=== PATIENT | female | born 1960 | race Hispanic/Latino ===

== ENCOUNTER 2020-07-27 08:02 | Emergency (ER) | payer MEDICAID ==
[~2020-07-27] VITALS: Ht 167.6 cm; Wt 84.7 kg
[2020-07-27] MEDS ORDERED: ASPI81TA86 PO (08:20)
[2020-07-27] MEDS ORDERED: LISI10TA4 PO (08:27)
[2020-07-27] MEDS ORDERED: ATOR40TA75 PO (08:27)
[2020-07-27] MEDS ORDERED: METF-838 PO (08:27)
[2020-07-27] MEDS ORDERED: NS 1,000 ML IV ONE (08:30)
[2020-07-27] MEDS ORDERED: ONDANSETRON 4MG/2ML VIAL IV ONE (08:30)
[2020-07-27 09:00] LABS: BASO # 0.1 10^3/uL (0.0-0.2); BASO % 0.8 % (0.0-1.0); EOS # 0.1 10^3/uL (0.0-0.5); EOS % 1.6 % (0.0-3.0); HEMATOCRIT 40.2 % (36.0-47.0); HEMOGLOBIN 13.2 g/dl (12.0-15.5); LYMPH # 2.5 10^3/uL (1.5-5.0); LYMPH % 39.3 % (24.0-44.0); MEAN CORPUSCULAR HEMOGLOBIN 29.2 pg (27.0-33.0); MEAN CORPUSCULAR HGB CONC 32.8 g/dl (32.0-36.5); MEAN CORPUSCULAR VOLUME 88.9 fl (80.0-96.0); MONO # 0.7 10^3/uL (0.0-0.8); MONO % 10.5 % (0.0-5.0); NEUTROPHILS # 3.1 10^3/uL (1.5-8.5); NEUTROPHILS % 47.6 % (36.0-66.0); PLATELET COUNT, AUTOMATED 173 10^3/uL (150-450); RED BLOOD COUNT 4.52 10^6/uL (4.00-5.40); WHITE BLOOD COUNT 6.4 10^3/uL (4.0-10.0)
[2020-07-27 09:21] LABS: ALBUMIN 3.8 GM/DL (3.2-5.2); ALT/SGPT 37 U/L (12-78); BILIRUBIN,DIRECT 0.3 MG/DL (0.0-0.2); BLOOD UREA NITROGEN 27 MG/DL (7-18); CALCIUM LEVEL 9.8 MG/DL (8.8-10.2); CARBON DIOXIDE LEVEL 24 MEQ/L (21-32); CHLORIDE LEVEL 103 MEQ/L (98-107); CK-MB VALUE MASS < 1.0 NG/ML (<3.6); CPK CREATINE PHOSPHOKINASE 149 U/L (26-192); GLOMERULAR FILTRATION RATE 48.8 (>45); GLUCOSE, FASTING 91 MG/DL (70-100); LIPASE 222 U/L (73-393); MB/CK RELATIVE INDEX 0.67 (< OR =4); POTASSIUM SERUM 4.1 MEQ/L (3.5-5.1); SODIUM LEVEL 138 MEQ/L (136-145); TROPONIN I < 0.02 NG/ML (< 0.10)
[2020-07-27] MEDS ORDERED: ISOVUE-370 76% 100ML VIAL As Ordered ONE (09:25)
[2020-07-27] MEDS ORDERED: CEFDINIR 300 MG CAP (OMNICEF) PO ONE (15:30)
[2020-07-27] MEDS ORDERED: ONDA4TAB6 PO (15:33)
[2020-07-27] MEDS ORDERED: MECL1TAB31 PO (15:33)
[2020-07-27 16:00] VITALS: BP 122/75
--- NOTE | 2020-07-31 15:50 | ECGEPIP ---
[facility] - ED Test Date: 2020-07-27 Pat Name: AGAPITO ENGLISH Department: Room: - Gender: Female Secretary Book Keeper: JT : 1960 Requested By: WOODY Siddiqi Order Number: [id number] Reading MD: Ainsley Arteaga Measurements Intervals [place] Rate: 77 P: 31 [place]: 142 QRS: -9 QRSD: 102 T: -30 QT: 364 QTc: 412 Interpretive Statements SINUS RHYTHM NONSPECIFIC T-WAVE ABNORMALITY BORDERLINE ECG SEE SCANNED DOWNTIME REPORT
--- NOTE | 2020-08-19 07:31 | REP ---
CT BRAIN WITHOUT CONTRAST HISTORY: Vomiting. FINDINGS: CT brain performed without the use of intravenous contrast material. Coronal reconstruction images were performed. Ventricles are normal in size and position. There is no midline shift or mass effect. Castañeda-white differentiation is well maintained. There is no acute intracranial hemorrhage or extraaxial fluid collection. Bone window examination is unremarkable. Visualized paranasal sinuses and mastoid air cells are clear. IMPRESSION: Essentially negative CT brain without contrast as discussed above. Preliminary report provided by virtual radiology at the time of exam. [facility]
--- NOTE | 2020-08-19 07:32 | REP ---
CT ABDOMEN AND PELVIS WITH IV CONTRAST PERFORMED 07/27/2020. HISTORY: Vomiting. TECHNIQUE: CT abdomen and pelvis performed following the intravenous administration of 100 mL of Isovue-370. Sagittal and coronal reconstruction images are performed. Visualized lung bases demonstrate no acute infiltrate. Liver demonstrates diffuse fatty infiltration without evidence of mass. There may be sludge in the gallbladder. Spleen is normal in size with no intrinsic abnormality. Adrenals, pancreas, and kidneys are unremarkable. There is no hydronephrosis. There is no abdominal aortic aneurysm. There is no adenopathy. There is no free air or free fluid. There is no bowel wall thickening. The appendix is normal. No pelvic mass is seen. Urinary bladder is not well distended and not well evaluated. There are mild degenerative changes of the lumbar spine, with mild disc space narrowing at L4-5 and slight anterior listhesis of L4 on L5. IMPRESSION: No acute findings as discussed in detail above. Fatty infiltration of the liver. Normal appendix. No free air, free fluid, or evidence of bowel obstruction or inflammation. Preliminary report provided by virtual radiology at the time of the exam. [facility]
== END 2020-07-27 16:00 | disposition home or self-care (01) ==
LOC: M ED 08:02
DX: R42 Dizziness and giddiness (principal); R11.0 Nausea; I10 Essential (primary) hypertension; M54.5 Low back pain; Z79.899 Other long term (current) drug therapy; Z79.82 Long term (current) use of aspirin; Z79.84 Long term (current) use of oral hypoglycemic drugs
CPT/HCPCS: 70450; 71045; 74177; 80048; 80076; 81001; 82550; 82553; 83690; 85025; 87088; 87186; 93005; 93041; 96361; 96374; 99284; J2405; Q9967